=== PATIENT | female | born 1970 | race Caucasian/White ===

== ENCOUNTER 2021-07-18 10:24 | Emergency (ER) | payer OTHER, MEDICAID ==
[~2021-07-18] VITALS: Ht 154.9 cm; Wt 63.5 kg
--- NOTE | 2021-07-18 10:30 | NUR ---
Patient to ER bed hallway to [facility] for evaluation. Side rails up. Report given to MEGAN Callahan.
[2021-07-18 10:34] VITALS: BP_SYST 146
--- NOTE | 2021-07-18 10:45 | NUR ---
PT BIBA C/O BILATERAL EYE PAIN, SWELLING X 3 DAYS. UPON ARRIVAL PT HAS SOME SWELLING TO BILATERAL EYELIDS, NO REDNESS, DENIES PAIN, NO DISCHARGE. PT IS AAOX4, AMBULATORY, V/S STABLE
--- NOTE | 2021-07-18 11:13 | NUR ---
ER DR. ZEPEDA AT THE BEDSIDE EXAMINING
[2021-07-18] MEDS ORDERED: LORA10TA7 PO (11:36)
[2021-07-18] MEDS ORDERED: IBUP-1968 PO (11:36)
[2021-07-18 11:46] VITALS: BP_SYST 146
--- NOTE | 2021-07-18 11:46 | NUR ---
Patient given written and verbal discharge instructions and verbalizes understanding. Given copies of tests performed during visit. Patient is awake, alert and oriented. Ambulatory with steady gait. Refuses offer of nursing home placement. Given list of available shelters in surrounding areas.
[2021-07-18] MEDS: LORATADINE 10 MG TABLET PO ONE (12:31)
== END 2021-07-18 11:46 | disposition home or self-care (01) ==
LOC: SED 10:24
DX: J30.9 Allergic rhinitis, unspecified (principal); H57.89 Other specified disorders of eye and adnexa; Z88.5 Allergy status to narcotic agent; Z79.899 Other long term (current) drug therapy
CPT/HCPCS: 99282

== ENCOUNTER 2021-11-25 10:15 | Emergency (ER) | payer OTHER, MEDICAID ==
[~2021-11-25] VITALS: Ht 154.9 cm; Wt 63.5 kg
[~2021-11-25 10:15] MED LIST: IBUP-1968 PO; LORA10TA7 PO
--- NOTE | 2021-11-25 10:30 | NUR ---
BIB by [facility], per patient statements N/V/D x 1 day, [place], patient is homeless. Denies any past medical Hx, Sx hx includes 1 . Denies taking and or use of any illicit drugs.
--- NOTE | 2021-11-25 10:31 | NUR ---
Placed onto monitor vitals obtained.
--- NOTE | 2021-11-25 10:33 | NUR ---
UA cup given for sample
[2021-11-25 10:34] VITALS: BP_SYST 110
--- NOTE | 2021-11-25 11:20 | NUR ---
Patient refused PIV
--- NOTE | 2021-11-25 11:30 | NUR ---
Lab at bedside
[2021-11-25] MEDS ORDERED: MAG HYDROX/AL HYDROX/SIMETH 30 ML, LIDOCAINE VISCOUS 2% 15ML (PO) 15 ML, DICYCLOMINE HC... PO ONE ×3 (12:00)
[2021-11-25] MEDS ORDERED: LORazepam 2 MG/ML VIAL IM ONE (12:00)
[2021-11-25 12:09] LABS: BASOPHILS % (AUTO) 0.3 % (0.0-2.0); EOSINOPHILS % (AUTO) 0.1 % (0.0-4.0); HEMATOCRIT 42.2 % (36-48); HEMOGLOBIN 13.9 g/dL (12.0-16.0); LYMPHOCYTES # (AUTO) 0.4 K/uL (1.0-5.5); LYMPHOCYTES % (AUTO) 3.6 % (20.5-51.5); MEAN CORPUSCULAR HEMOGLOBIN 29 pg (27-31); MEAN CORPUSCULAR HGB CONC 33 % (32-36); MEAN CORPUSCULAR VOLUME 89 fL (79.0-98.0); MONOCYTES # (AUTO) 0.2 K/uL (0.0-1.0); MONOCYTES % (AUTO) 2.1 % (1.7-9.3); NEUTROPHILS # (AUTO) 10.9 K/uL (1.8-7.7); NEUTROPHILS % (AUTO) 93.9 % (40.0-70.0); PLATELET COUNT (AUTO) 322 K/uL (130-430); RED BLOOD CELL COUNT(AUTO) 4.73 MIL/uL (4.2-6.2); RED CELL DISTRIBUTION WIDTH 13.6 % (9.0-15.0); WHITE BLOOD COUNT (AUTO) 11.6 K/uL (4.8-10.8)
--- NOTE | 2021-11-25 12:15 | NUR ---
Patient medicated per orders.
--- NOTE | 2021-11-25 12:25 | NUR ---
Xray at bedside
[2021-11-25 12:42] LABS: ANION GAP 14 (5-15); CALCIUM 8.6 mg/dL (8.4-11.0); CHLORIDE 105 mmol/L (98-107); CREATININE 0.67 mg/dL (0.55-1.30); GFR AFRICAN AMERICAN 119 mL/min (>90); GLUCOSE 133 mg/dL (70-99); POTASSIUM 3.9 mmol/L (3.5-5.1); SODIUM SERUM 140 mmol/L (136-145); UREA NITROGEN, BLOOD 15 mg/dL (8-21)
[2021-11-25 12:59] LABS: BILIRUBIN,URINE NEGATIVE (NEGATIVE); BLOOD, URINE NEGATIVE (NEGATIVE); CLARITY/URINE CLEAR (CLEAR); COLOR,URINE YELLOW (YELLOW); GLUCOSE,URINE NEGATIVE (NEGATIVE); KETONES,URINE NEGATIVE (NEGATIVE); LEUKOCYTE ESTERASE ,URINE TRACE (NEGATIVE); NITRITE, URINE NEGATIVE (NEGATIVE); PROTEIN URINE NEGATIVE (NEGATIVE); UROBILINOGEN,URINE 0.2 (0.2-1.0)
[2021-11-25 13:13] LABS: ALANINE AMINOTRANSFERASE 27 U/L (12-78); ASPARTATE AMINOTRANSFERASE 19 U/L (10-37); TOTAL BILIRUBIN 0.3 mg/dL (0.0-1.0)
[2021-11-25 13:14] LABS: ALBUMIN 3.3 g/dL (3.4-4.8); ALCOHOL, BLOOD < 3 mg/dL (<10); HCG,QUANTITATIVE 2 mIU/ML (0-6); LIPASE 50 U/L (73-393)
[2021-11-25 13:18] LABS: BACTERIA,URINE FEW /HPF (None Seen); MUCUS,URINE 1+ /LPF (None Seen)
[2021-11-25 13:22] LABS: BARBITURATE, URINE NEGATIVE (NEG <=200); BENZODIAZEPINE, URINE NEGATIVE (NEG <=150); CANNABINOID, URINE NEGATIVE (NEG <=50); COCAINE, URINE NEGATIVE (NEG <=150); METHAMPHETAMINES SCREEN,URINE NEGATIVE (NEG <=500); OPIATE, URINE NEGATIVE (NEG <=100); PHENCYCLIDINE SCREEN,URINE NEGATIVE (NEG <=25); UR TRICYCLIC ANTIDEPRESSANTS NEGATIVE (NEG <=300); URINE AMPHETAMINE POSITIVE (NEG <=500); URINE METHADONE NEGATIVE (NEG <=200); URINE OXYCODONE SCREEN NEGATIVE (NEG <=100); URINE PROPOXYPHENE SCREEN NEGATIVE (NEG <=300)
[2021-11-25] MEDS ORDERED: OMEP40CA20 PO (14:07)
[2021-11-25] MEDS ORDERED: ANT30 PO (14:21)
[2021-11-25 14:27] VITALS: BP_SYST 118
--- NOTE | 2021-11-25 14:29 | NUR ---
Patient given written and verbal discharge instructions and verbalizes understanding. ER MD discussed with patient the results and treatment provided. Patient in stable condition. ID arm band removed. Rx of mylanta, prilosec given. Patient educated on pain management and to follow up with PMD. Pain Scale 0. Opportunity for questions provided and answered. Medication side effect fact sheet provided.
== END 2021-11-25 14:27 | disposition home or self-care (01) ==
LOC: SED 10:15
DX: K29.70 Gastritis, unspecified, without bleeding (principal)
CPT/HCPCS: 36415; 74018; 80053; 80307; 81000; 83690; 84702; 85025; 87086; 96372; 99284; G0482; J2001; J2060